=== PATIENT | female | born 1970 | race Two or more races ===

== ENCOUNTER 2020-02-04 17:01 | Emergency (ER) | payer MEDICAID, OTHER ==
[~2020-02-04] VITALS: Ht 167.6 cm; Wt 79.4 kg
[2020-02-04 17:01] VITALS: BP 111/81
--- NOTE | 2020-02-04 17:05 | NUR ---
C/O FEVER COUGH SOB AND N/V X 2 WEEKS. PT STATES SHE WAS SWABBED FOR COVID X1 WK AGO AND WAS (-) BUT SHE IS STILL HAVING SYMPTOMS. O2 SAT RA 93%. NO LABORED BREATHING OR ACCESORY MUSCLE USE NOTED. TEMP 99.9 PO AT THIS TIME. PT SITTING IN CHAIR INSIDE TENT.
--- NOTE | 2020-02-04 17:10 | NUR ---
ARI JULIAN EVALUATING PT
[2020-02-04 17:56] VITALS: BP 111/81
== END 2020-02-04 17:57 | disposition home or self-care (01) ==
LOC: MED 17:01
DX: U07.1 COVID-19 (principal); J18.9 Pneumonia, unspecified organism
CPT/HCPCS: 71045; 99284; U0003